=== PATIENT | female | born 1955 | race Caucasian/White ===

== ENCOUNTER → 2023-12-14 11:58 | Outpatient (REF) | payer OTHER, SELFPAY | LOC: HWWDC 11:58 | PROVIDERS: ATTENDING PHYSICIAN Physician Assistant Medical | DX: Z12.31 Encounter for screening mammogram for malignant neoplasm of breast (principal) | CPT/HCPCS: 77063; 77067 ==

== ENCOUNTER → 2025-01-09 14:03 | Outpatient (REF) | payer OTHER, SELFPAY | LOC: HWRAD 14:03 | PROVIDERS: ATTENDING PHYSICIAN Physician Assistant Medical | DX: Z12.31 Encounter for screening mammogram for malignant neoplasm of breast (principal); M85.80 Other specified disorders of bone density and structure, unspecified site | CPT/HCPCS: 77063; 77067; 77080 ==

== ENCOUNTER → 2025-01-09 14:10 | Outpatient (REF) | payer SELFPAY | LOC: HWRAD 14:10 | PROVIDERS: ATTENDING PHYSICIAN Physician Assistant Medical | DX: E78.2 Mixed hyperlipidemia (principal) | CPT/HCPCS: 75571 ==